=== PATIENT | female | born 1970 | race Caucasian/White ===

== ENCOUNTER 2023-11-28 14:19 | Emergency (ER) | payer BC, SELFPAY ==
[2023-11-28 14:27] VITALS: BP 107/80; BMI 35.3
--- NOTE | 2023-11-28 15:31 | ED.MUSCINJ ---
HPI-Injury
General
Chief Complaint: Extremity Pain (non-traumatic)
Source: patient
Exam Limitations: none
Time Seen by Provider: 11/28/23 15:07
Nursing documentation reviewed up to this point in time: agreed with
Travel History
Have you had any contact with someone who has COVID-19?: No
Do you have any symptoms of coronavirus? Fever > 100 degrees, chills, cough, shortness of breath, sore throat, loss of taste or smell, muscle aches, or headache?: No
History of Present Illness-Injury
Is this injury a work related problem?: No
Is pt an associate of [facility]?: No
Initial Injury comments:
Patient fell playing pickleball. Denies hitting her head Complains of pain to her left wrist. Injury occurred just [employer]
Past History
Past History
ED Past Medical History: GERD
ED Past Surgical History:
Social History
Tobacco: Non-smoker
Alcohol: None
Drug: None
Personal:
Living: with family
Family History
Family History: CAD
Review of Systems
Review of Systems
Allergies reviewed?: Yes
All Other Systems: ROS reviewed and negative except as documented in HPI and ROS
Constitutional: Reports no symptoms
Musculoskeletal: Reports joint pain (Pain to right wrist)
Skin: Reports no symptoms
Neurological: Reports no symptoms
Psychiatric: Reports no symptoms
Musculoskeletal Injury Exam
Musculoskeletal Injury Exam
Right Wrist:
Pain with Movement?: Moderate
Tender to palpation?: Moderate
Soft tissue swelling?: Moderate
External deformity and angulation?: None
Joint effusion?: None
Contusion?: None
Hematoma-local bleeding into tissue?: Moderate
Strain- Sprain- Tear (Connective tissue injury)?: Moderate
Crepitus with movement?: No
Joint instability?: No
Malalignment/deformity?: No
Range of motion: Limited
Distal skin color and temperature: normal-warm & good color
Capillary Refill: normal
Normal distal neurovascular exam?: Yes
Peripheral Pulses: radial (left): 3+
Phy Exam
General Physical Exam
General Presentation: well appearing
General age: appears stated age
General Skin: warm
General Habitus: normal
General Mental: alert
General Hydration: appears well hydrated
Musculoskeletal Exam
Musculoskeletal Exam: neuro vasc intact
Skin Exam
Skin Exam: normal color, warm/dry and no rash
Psychiatric Exam
Psychiatric Exam: normal mood/affect
Injury Course
Orders/Labs/Results
Orders:
Orders
11/28/23 14:29
Wrist, Left 3 Views CR [CR Wrist - Left Min 3 Views] Urgent
Comment:
Reason For Exam: pain
11/28/23 15:18
Dorsal/Volar Left-Treatment ONCE
Sling Left-Treatment ONCE
Ibuprofen [Motrin] 600 mg PO NOW STA
*Radiology
Radiology exam reviewed: radiology read reviewed
*Pulse Oximetry
Patient hypoxic: no
*Critical Care Note
Total Time (30-74mins, 75-104mins- exclusive of procedures): Not Applicable
ED Attending Note
-
Portions of this chart may have been created with voice recognition software.� Occasional wrong word or��sound alike� substitutions may have occurred due to the inherent limitations of voice recognition software.
Discharge Plan
Departure
Patient Disposition: Home (Routine Discharge)
Date of Disposition: 11/28/23
Time of Disposition: 15:21
Patient with high blood pressure during this ER visit?: No
Condition: Good
Covid-19: Not Applicable
Discharge Problem:
Fracture of wrist
Instructions: Wrist Fracture (DC), Using Cold for Pain, How to Use a Shoulder Sling ED, Caring for your splint, Ibuprofen
Prescriptions:
No Action
levothyroxine 25 mcg Tablet
25 mcg PO DAILY
Fish Oil
2 tab PO DAILY
Lipitor
10 mg PO DAILY
Vitamin D3
2,000 mg PO DAILY
Cipro
250 mg PO BID
Referrals:
Jeffrey Nicholas MD [Active] - Call in 1-3 days for appt
Tawanna Dominguez MD [Family Provider] -
Interventions
Interventions:
*Risk Screen - Suicide Last Done: 11/28/23 14:27
*Neglect/Abuse Screening Last Done: 11/28/23 14:27
*ED COVID-19 Vaccine History Last Done: 11/28/23 14:27
Discharge Date and Time
Print Language: ROMANSH
[2023-11-28] MEDS: MOTRIN 600 MG PO (15:34)
== END 2023-11-28 16:34 | disposition home or self-care (01) ==
LOC: EMR 14:19
PROVIDERS: EMERGENCY PHYSICIAN Emergency Medicine; FAMILY PHYSICIAN Family Medicine
DX: S52.572A Other intraarticular fracture of lower end of left radius, initial encounter for closed fracture (principal); W19.XXXA Unspecified fall, initial encounter
CPT/HCPCS: 99283; 29125; 73110